=== PATIENT | female | born 1955 | race Two or more races ===

== ENCOUNTER 2021-03-14 12:08 | Emergency (ER) | payer MEDICARE, MEDICAID ==
[~2021-03-14] VITALS: Ht 170.2 cm; Wt 90.7 kg
[2021-03-14 12:10] VITALS: BP 147/76
== END 2021-03-14 19:56 | disposition home or self-care (01) ==
LOC: ER 12:08
DX: R60.0 Localized edema (principal); E78.5 Hyperlipidemia, unspecified; I10 Essential (primary) hypertension
CPT/HCPCS: 93970